=== PATIENT | male | born 1940 | race Caucasian/White ===

== ENCOUNTER → 2021-01-18 | Outpatient (CLI) | payer OTHER ==
[~2021-01-18] MED LIST: ASPIRIN325; AZOR 5-40 MG T1 EACH PO; BENICAR20 MG PO; BYSTOLIC 5 MG5 M1 PO; COZAAR 50 MG TA50 M2 PO; DOXYCYCLINE 10100 MG PO; EDARBYCLOR 40-1 EAC1 PO; LIPITOR40 MG PO; METFORMIN HCL500 MG PO; PHENERGAN 25 MG25 M1 PO
== END ==
LOC: SJCVC 16:19
PROVIDERS: ATTEND Internal Medicine Cardiovascular Disease
DX: R94.31 Abnormal electrocardiogram [ECG] [EKG] (principal); I25.10 Atherosclerotic heart disease of native coronary artery without angina pectoris; E78.00 Pure hypercholesterolemia, unspecified; E11.9 Type 2 diabetes mellitus without complications; I65.23 Occlusion and stenosis of bilateral carotid arteries; I10 Essential (primary) hypertension; I87.2 Venous insufficiency (chronic) (peripheral); E78.5 Hyperlipidemia, unspecified; K21.9 Gastro-esophageal reflux disease without esophagitis; Z79.84 Long term (current) use of oral hypoglycemic drugs; Z79.899 Other long term (current) drug therapy; Z87.891 Personal history of nicotine dependence; Z88.2 Allergy status to sulfonamides; Z88.8 Allergy status to other drugs, medicaments and biological substances